=== PATIENT | female | born 1950 ===

== ENCOUNTER 2018-05-17 06:25 | Inpatient (IN) | payer OTHER | END 2018-05-20 19:23 | disposition home or self-care (01) | DRG 331 | LOC: O/R 06:25 → SURG 13:44 | PROC: 0DTF4ZZ Resection of Right Large Intestine, Percutaneous Endoscopic Approach (ICD-10-PCS; principal; 2018-05-17) | PROC: 07TC4ZZ Resection of Pelvis Lymphatic, Percutaneous Endoscopic Approach (ICD-10-PCS; 2018-05-17) | PROC: 0DTU4ZZ Resection of Omentum, Percutaneous Endoscopic Approach (ICD-10-PCS; 2018-05-17) | PROC: 3E0F7GC Introduction of Other Therapeutic Substance into Respiratory Tract, Via Natural or Artificial Opening (ICD-10-PCS; 2018-05-17) | DX: C18.2 Malignant neoplasm of ascending colon (principal); D64.89 Other specified anemias; J47.9 Bronchiectasis, uncomplicated ==